=== PATIENT | female | born 1955 ===

== ENCOUNTER 2018-06-17 06:49 | Day surgery (SDC) | payer MEDICARE, OTHER ==
[~2018-06-17 06:49] MED LIST: BALANCED SALT IRRIG SOLN COMB1 500 ML, EPINEPHRINE-PF 1:1000 0.5 MG IO ONE
[2018-06-17] MEDS ORDERED: ONDANSETRON 4 MG/2 ML VIAL IV ONE (06:50)
[2018-06-17] MEDS ORDERED: IV NORMAL SALINE 1000 ML BAG IV ONE (06:50)
[2018-06-17] MEDS ORDERED: BALANCED SALT IRRIG SOLN COMB1 500 ML, EPINEPHRINE-PF 1:1000 0.5 MG IO ONE ×2 (07:00)
[2018-06-17] MEDS ORDERED: CIPROFLOXACIN 0.3% OPHT DROP 2.5 ML BOTTLE ONE (07:07)
[2018-06-17] MEDS ORDERED: PHENYLEPHRINE 2.5% OPHT DROP 2 ML BOTTLE ONE (07:07)
[2018-06-17] MEDS ORDERED: TROPICAMIDE 1% OPHT DROP 3 ML BOTTLE ONE (07:07)
[2018-06-17] MEDS ORDERED: CYCLOPENTOLATE 1% OPHT DROP 2 ML BOTTLE ONE (07:07)
[2018-06-17] MEDS ORDERED: FLURBIPROFEN 0.03% OPHT DROP 2.5 ML BOTTLE ONE (07:07)
[2018-06-17] MEDS ORDERED: MOXIFLOXACIN HCL 3 ML OPHT DROPS ONE (07:33)
[2018-06-17] MEDS ORDERED: NEO/POLYMYX B/DEXAME OPHT OINT 3.5 GM TUBE ONE (07:33)
[2018-06-17] MEDS ORDERED: LIDOCAINE-MPF 2% 5 ML VIAL ONE (07:33)
[2018-06-17] MEDS ORDERED: TETRACAINE HCL 0.5% OPHT DROP 2 ML BOTTLE ONE (07:34)
[2018-06-17] MEDS ORDERED: TIMOLOL MALEATE 0.5% OPHT DROP 5 ML BOTTLE ONE (07:34)
[2018-06-17] MEDS ORDERED: BALANCED SALT IRRIG SOLN COMB2 15 ML IRRIG.SOLN ONE (07:34)
[2018-06-17] MEDS ORDERED: ACETYLCHOLINE CHLORIDE 1% OPHT 1 EA KIT ONE (07:34)
[2018-06-17] MEDS ORDERED: BUPIVACAINE PF 0.5% 30 ML VIAL ONE (07:34)
[2018-06-17] MEDS ORDERED: HYALURONATE SODIUM 12.8 MG/0.8 ML DISP.SYRIN ONE (07:35)
[2018-06-17] MEDS ORDERED: HYALURONIDASE,OVINE 200 UNITS/ML VIAL ONE (07:35)
[2018-06-17] MEDS ORDERED: HYALURONATE SODIUM 8.5 MG/0.85 ML DISP.SYRIN ONE (07:35)
[2018-06-17] MEDS ORDERED: DEXTROSE 50% 50 ML DISP.SYRIN ONE (08:00)
[2018-06-17] MEDS ORDERED: FENTANYL CITRATE 100 MCG/2 ML AMPUL ONE (08:11)
== END 2018-06-17 11:10 ==
LOC: DS 06:49
PROVIDERS: ATTEND Ophthalmology
DX: E11.36 Type 2 diabetes mellitus with diabetic cataract (principal); E78.5 Hyperlipidemia, unspecified; I25.10 Atherosclerotic heart disease of native coronary artery without angina pectoris; K21.9 Gastro-esophageal reflux disease without esophagitis; I21.3 ST elevation (STEMI) myocardial infarction of unspecified site; Z88.8 Allergy status to other drugs, medicaments and biological substances; D64.9 Anemia, unspecified; I12.9 Hypertensive chronic kidney disease with stage 1 through stage 4 chronic kidney disease, or unspecified chronic kidney disease; E11.22 Type 2 diabetes mellitus with diabetic chronic kidney disease; N18.9 Chronic kidney disease, unspecified; Z95.1 Presence of aortocoronary bypass graft; G89.29 Other chronic pain
CPT/HCPCS: 66984; 71045; 82962 ×3; 93005; A4663; J0171; J2405; J3010; J3471; J3490 ×3; J7030 ×2; J7321 ×2; J8499; V2632